=== PATIENT | female | born 1985 | race African-American/Black ===

== ENCOUNTER 2018-12-02 19:33 | Emergency (ER) | payer SELFPAY ==
[~2018-12-02] VITALS: Ht 165.1 cm; Wt 80.0 kg
[2018-12-02] MEDS ORDERED: ACETAMINOPHEN WITH CODEINE 300/30MG TABLET PO STA (20:29)
[2018-12-02] MEDS ORDERED: SODIUM CHLORIDE 0.9% 1,000 ML IV ONE (20:29)
[2018-12-02] MEDS ORDERED: ALBUTEROL (0.083%) 2.5MG/3ML NEB HHN ONE (20:30)
[2018-12-02] MEDS ORDERED: PREDNISONE 20MG TABLET PO ONE (20:30)
[2018-12-02 21:22] LABS: BASOPHILS % 0.2 % (0.0-2.0); EOSINOPHILS % 0.6 % (0.0-5.0); HEMATOCRIT. 34.1 % (36.0-48.0); HEMOGLOBIN. 10.9 g/dL (12.0-16.0); MEAN CORPUSCULAR HEMOGLOBIN 24.2 pg (28.0-32.0); MEAN CORPUSCULAR VOLUME 75.9 fL (81.0-99.0); MEAN PLATELET VOLUME 8.2 fl (7.4-10.4); MONOCYTES % 4.7 % (2.0-8.0); NEUTROPHILS % 60.5 % (40.0-76.0); PLATELET 308 x1000/uL (130-400)
[2018-12-02 21:32] LABS: CHLORIDE 106 mEq/L (98-107)
[2018-12-02 23:06] VITALS: BP 122/80
== END 2018-12-03 10:15 | disposition home or self-care (01) ==
LOC: ER 12-03 09:49
DX: J44.1 Chronic obstructive pulmonary disease with (acute) exacerbation (principal); R07.9 Chest pain, unspecified; E11.9 Type 2 diabetes mellitus without complications; Z88.0 Allergy status to penicillin; Z88.1 Allergy status to other antibiotic agents; Z88.6 Allergy status to analgesic agent; Z91.040 Latex allergy status; Z88.8 Allergy status to other drugs, medicaments and biological substances
CPT/HCPCS: 36415; 71045; 80053; 81025; 85025; 85379; 93005; 94640; 99284; J7030; J7512; J7611; Z7610

== ENCOUNTER 2019-02-25 06:14 | Emergency (ER) | payer MEDICAID ==
[~2019-02-25] VITALS: Ht 165.1 cm; Wt 76.0 kg
[2019-02-25] MEDS ORDERED: SODIUM CHLORIDE 0.9% 1,000 ML IV ONE (06:55)
[2019-02-25] MEDS ORDERED: ACETAMINOPHEN 325MG TABLET PO ONE (07:00)
[2019-02-25 09:27] VITALS: BP 120/80
== END 2019-02-25 09:34 | disposition home or self-care (01) ==
LOC: ER 06:14
DX: B34.9 Viral infection, unspecified (principal); J02.9 Acute pharyngitis, unspecified; R07.89 Other chest pain; J45.909 Unspecified asthma, uncomplicated; E11.9 Type 2 diabetes mellitus without complications; Z88.0 Allergy status to penicillin; Z88.6 Allergy status to analgesic agent; Z91.040 Latex allergy status; Z88.1 Allergy status to other antibiotic agents
CPT/HCPCS: 82962; 87070; 87430; 87804; 93005; 99283; J7030; Z7610

== ENCOUNTER 2019-03-06 07:14 | Emergency (ER) | payer MEDICAID ==
[~2019-03-06] VITALS: Ht 165.1 cm; Wt 67.0 kg
[2019-03-06] MEDS ORDERED: ALBUTEROL (0.083%) 2.5MG/3ML NEB HHN STA (10:20)
[2019-03-06] MEDS ORDERED: IPRATROPIUM BROMIDE (0.02%) 0.5MG/2.5ML NEB HHN STA (10:20)
[2019-03-06] MEDS ORDERED: DEXAMETHASONE 4MG/ML 1ML VIAL IM ONE (10:30)
[2019-03-06] MEDS ORDERED: NAPROXEN 250MG TABLET PO ONE (10:45)
[2019-03-06 11:59] VITALS: BP 124/83
== END 2019-03-06 12:01 | disposition home or self-care (01) ==
LOC: ER 07:14
DX: J20.9 Acute bronchitis, unspecified (principal); E11.9 Type 2 diabetes mellitus without complications; Z88.0 Allergy status to penicillin; Z88.3 Allergy status to other anti-infective agents; Z88.6 Allergy status to analgesic agent; Z91.040 Latex allergy status
CPT/HCPCS: 81025; 82962; 87070; 87430; 87804; 94640; 96372; 99283; J1100; J7611; Z7610